=== PATIENT | female | born 1995 | race Caucasian/White ===

== ENCOUNTER 2024-03-07 10:06 | Outpatient (RCR) | payer OTHER, SELFPAY ==
[2024-03-07 11:37] LABS: Basophils Percent Auto 0.2 % (0.2-1.2); Eosinophils Percent Auto 0.4 % (0-4.4); Hematocrit 32.9 % (37.0-47.0); Hemoglobin 10.6 g/dL (12.0-15.0); Immature Granulocyte Absolute 0.08 K/mm3 (0.00-0.031); Immature Granulocyte Percent A 0.8 % (0-0.5); Lymphocytes Absolute Auto 1.37 K/mm3 (0.9-3.2); Lymphocytes Percent Auto 13.8 % (18.3-44.2); Mean Corpuscular HGB Conc 32.2 g/dl (32-36); Mean Corpuscular Hemoglobin 28.3 pg (26-34); Mean Platelet Volume 10.4 fl (7.4-10.4); Monocytes Absolute Auto 0.7 K/mm3 (0.1-0.6); Neutrophils Absolute Auto 7.7 K/mm3 (1.3-6.7); Neutrophils Percent Auto 77.8 % (45.5-73.1); Platelet Count Result 240 k/mm3 (150-375); Red Blood Count 3.74 M/mm3 (4.2-5.4); Red Cell Distribution Width 13.1 % (11.5-14.5); White Blood Count 9.9 K/mm3 (4.5-10.0)
[2024-03-07 11:49] LABS: Glucose 1 Hour PP 50gm Dose 138 mg/dL
[2024-03-07 12:31] LABS: HIV 1/2 Ab P24 Ag Result Negative (Negative)
[2024-03-08 08:05] LABS: Rapid Plasma Reagin Non-Reactive (NonReactive)
[2024-03-09] MEDS: RHO(D) IMMUNE GLOBULIN 300 MCG/2 ML SYRINGE IM (08:02)
== END 2024-06-05 23:59 | disposition home or self-care (01) ==
LOC: ANHLAB 10:06
PROVIDERS: Visit Provider Obstetrics & Gynecology
DX: O36.0190 Maternal care for anti-D [Rh] antibodies, unspecified trimester, not applicable or unspecified (principal)
CPT/HCPCS: 36415; 82947; 85025; 85461; 86592; 86703; 86850; 86900; 86901; 90384; 96372; G0432; J2790

== ENCOUNTER 2024-03-09 06:58 | Outpatient (CLI) | payer OTHER, SELFPAY ==
[2024-03-09 07:36] LABS: Glucose Fasting Gestational 95 mg/dL (>/=95)
[2024-03-09 09:47] LABS: Glucose 1 Hour Gest 147 mg/dL (>/=180)
[2024-03-09 10:40] LABS: Glucose 2 Hour Gest 119 mg/dL (>/= 155)
[2024-03-09 11:33] LABS: Glucose 3 Hour Gest 109 mg/dL (>/=140)
== END 2024-03-09 06:59 | disposition home or self-care (01) ==
LOC: ANHLAB 06:59
PROVIDERS: Visit Provider Obstetrics & Gynecology
DX: N94.89 Other specified conditions associated with female genital organs and menstrual cycle (principal)
CPT/HCPCS: 36415; 82951; 82952

== ENCOUNTER 2024-05-09 19:09 | Outpatient (CLI) | payer OTHER, SELFPAY ==
[2024-05-09] VITALS (22 sets, daily range): BP systolic 129–134; BP diastolic 77–82; PULSE 91–111; O2SAT 97–99; BMI 34.0
[2024-05-09 20:00] LABS: Basophils Percent Auto 0.1 % (0.2-1.2); Eosinophils Absolute Auto 0.1 K/mm3 (0-0.3); Eosinophils Percent Auto 0.5 % (0-4.4); Hematocrit 33.3 % (37.0-47.0); Immature Granulocyte Absolute 0.07 K/mm3 (0.00-0.031); Immature Granulocyte Percent A 0.6 % (0-0.5); Lymphocytes Absolute Auto 2.03 K/mm3 (0.9-3.2); Lymphocytes Percent Auto 18.6 % (18.3-44.2); Mean Corpuscular Hemoglobin 28.7 pg (26-34); Mean Corpuscular Volume 86.9 fl (80-100); Monocytes Absolute Auto 0.9 K/mm3 (0.1-0.6); Monocytes Percent Auto 8.5 % (2.6-8.5); Neutrophils Absolute Auto 7.8 K/mm3 (1.3-6.7); Neutrophils Percent Auto 71.7 % (45.5-73.1); Platelet Count Result 206 k/mm3 (150-375); Red Blood Count 3.83 M/mm3 (4.2-5.4); White Blood Count 10.9 K/mm3 (4.5-10.0)
[2024-05-09 20:05] LABS: Add Urine Microscopic? YES; Appearance Urine Clear (Clear); Bacteria Urine None Seen /hpf; Bilirubin Urine Negative (Negative); Blood Urine 1+ (Negative); Color Urine Yellow (Yellow); Glucose Urine UA Trace mg/dL (Negative); Ketones Urine Negative (Negative); Leukocyte Esterase Ur Negative LEU/UL (Negative); Nitrate Urine Negative (Negative); Non Pathogenic Casts 0-2; Protein Urine Negative (Negative); Specific Grav Ur 1.012 (1.001-1.035); Squamous Epithelial Cell Urine None Seen /hpf (Few); Urobilinogen Urine 0.2 mg/dL (<2.0); WBC Urine 0-5 /hpf (0-3); pH Urine 6.5 (5.0-9.0)
[2024-05-09 20:11] LABS: Alanine Aminotransferase 15 U/L (6-35); Albumin Level 3.7 g/dL (3.5-5.1); Alkaline Phosphatase 123 U/L (38-126); Anion Gap 8 mmol/L (4-12); Aspartate Amino Transferase 23 U/L (14-36); Bilirubin,Total 0.3 mg/dL (0.2-1.3); Blood Urea Nitrogen 4 mg/dL (7-17); Calcium 8.5 mg/dL (8.4-10.2); Carbon Dioxide 21 mmol/L (22-30); Chloride 106 mmol/L (98-107); Estimated CRCL calculation 165 ml/min; Estimated Glomerular Filt Rate > 60; Glucose 78 mg/dL (65-110); Potassium 3.9 mmol/L (3.4-5.0); Sodium 135 mmol/L (137-145); Uric Acid 3.4 mg/dL (2.5-7.5)
[2024-05-09 20:27] LABS: Total Protein Urine Random 8 mg/dL; Ur Ttl Prot Creatinine Ratio 0.12 mg/mg (0-0.20)
--- NOTE | 2024-05-09 20:59 | PC.NURSE ---
Called Dr. Keller, update on pt, blood pressure, and labs. Orders received to discharge pt with instructions to take blood pressures once a day, keep next scheduled appointment, and when to return to the unit.
--- NOTE | 2024-05-09 21:11 | PC.NURSE ---
Pt discharged with instructions to take blood pressure once a day, keep next scheduled appointment, and when to return to the unit, pt verbalizes understanding.
== END 2024-05-09 21:11 | disposition home or self-care (01) ==
LOC: ANHOBOP 19:12 → ANHOBPP 19:12
PROVIDERS: Visit Provider Obstetrics & Gynecology
DX: O13.9 Gestational [pregnancy-induced] hypertension without significant proteinuria, unspecified trimester (principal); Z3A.00 Weeks of gestation of pregnancy not specified
CPT/HCPCS: 36415; 59025; 80053; 81001; 82570; 84156; 84550; 85025; 99199

== ENCOUNTER 2024-05-25 14:31 | Outpatient (RCR) | payer OTHER, SELFPAY ==
[2024-05-17 15:32] VITALS: BP 132/76; PULSE 114
[2024-05-21 14:35] VITALS: BP 122/73; PULSE 110
--- NOTE | ~2024-05-25 | US_ITS ---
EXAMINATION: US OB BPP wo non-stress DATE: 05/17/2024 15:37 INDICATION: Hypertension. Third trimester. TECHNIQUE: Real-time pelvic ultrasound was performed. COMPARISON: Ultrasound 04/25/2024 FINDINGS: There is a single living fetus in vertex presentation. The placenta is posterior. heart rate i s 140 beats per minute (bpm). Biophysical profile performed by the technologist: breathing (30 sec sustained breathing in 30 minutes): 2 out of 2 movement (3 gross body movements in 30 minutes): 2 out of 2 tone (one episode of gftizqz-qfjhddqac-hjakdem limb movement): 2 out of 2 Amniotic fluid pocket (2 cm): 2 out of 2 Total score: 8 out of 8 IMPRESSION: 1. Single living fetus in vertex presentation. 2. Biophysical profile 8 out of 8. Reviewed, dictated and finalized at location A.
[2024-05-25 15:23] VITALS: BP 120/74; PULSE 98
== END 2024-06-04 09:42 | disposition home or self-care (01) ==
LOC: ANHOBOP 14:31
PROVIDERS: Visit Provider Obstetrics & Gynecology
DX: O16.3 Unspecified maternal hypertension, third trimester (principal); Z3A.38 38 weeks gestation of pregnancy
CPT/HCPCS: 59025; 76819

== ENCOUNTER 2024-05-27 16:58 | Inpatient (IN) | payer OTHER, SELFPAY ==
[2024-05-27] VITALS (26 sets, daily range): BP systolic 111–148; BP diastolic 44–87; PULSE 96–114; RESP 18; TEMP 36.2–36.6; BMI 33.3
[2024-05-27 17:29] LABS: Basophils Percent Auto 0.2 % (0.2-1.2); Eosinophils Percent Auto 0.2 % (0-4.4); Hematocrit 35.4 % (37.0-47.0); Hemoglobin 11.8 g/dL (12.0-15.0); Immature Granulocyte Absolute 0.08 K/mm3 (0.00-0.031); Immature Granulocyte Percent A 0.6 % (0-0.5); Lymphocytes Absolute Auto 1.97 K/mm3 (0.9-3.2); Lymphocytes Percent Auto 15.9 % (18.3-44.2); Mean Corpuscular HGB Conc 33.3 g/dl (32-36); Mean Platelet Volume 10.7 fl (7.4-10.4); Monocytes Absolute Auto 0.8 K/mm3 (0.1-0.6); Monocytes Percent Auto 6.4 % (2.6-8.5); Neutrophils Absolute Auto 9.5 K/mm3 (1.3-6.7); Neutrophils Percent Auto 76.7 % (45.5-73.1); Platelet Count Result 208 k/mm3 (150-375); Red Blood Count 4.07 M/mm3 (4.2-5.4); Red Cell Distribution Width 18.6 % (11.5-14.5); White Blood Count 12.4 K/mm3 (4.5-10.0)
--- NOTE | 2024-05-27 17:31 | LDADM ---
This patient, Yumi Velázquez, was admitted to Labor/Delivery/Recovery 108 on 05/27/24 at 16:58. Plans for labor, pain management and were discussed with patient. Patient/family oriented to hospital policies and general routines including ID bracelet, bed and alarms, visiting hours, pain management, procedures, bathroom and other care routines, personal items, smoking policy, room service/diet and guest tray routines, infant security routines, and visiting hours. Patient/Family are encouraged to report perceived risks to care and to ask questions if they do not understand what they are told or what they should do. See OBIX for further documentation.
[2024-05-27] MEDS: DINOPROSTONE 10 MG VAG INSERT VAGINAL (17:43)
--- NOTE | 2024-05-27 18:13 | WPDANESEPP ---
Anes - Eval Pre Procedure Procedure: Labor Epidural Date/Time: 05/27/24 18:13 Surgeon: Krishna Preop Diagnosis: Labor Pain Pre Op Diagnosis: Induction of Labor Patient Data Age: 28 Gender: F Height: 1.55 m Weight: 80 kg Last Vital Signs Temp 36.6 C 05/27/24 17:34 Pulse 105 H 05/27/24 18:01 Resp 18 05/27/24 17:34 BP 136/82 05/27/24 18:01 O2 Del Method Room Air 05/27/24 17:30 Allergies Allergy/AdvReac Type Severity Reaction Status Date / Time Sulfa (Sulfonamide Allergy Mild Rash Verified 05/23/24 17:10 Antibiotics) Home Medications Medication Instructions Recorded Confirmed Type vits no.126-ferrous fum 1 tablet PO DAILY 10/10/23 05/23/24 History 28 mg iron-folic acid 800 mcg tablet (Classic ) doxylamine succinate 25 mg tablet 25 mg PO QHS PRN Nausea 11/08/23 05/27/24 History (Unisom (doxylamine)) pyridoxine (vitamin B6) 25 mg 25 mg PO DAILY 11/08/23 05/23/24 History tablet aspirin 81 mg tablet,delayed 81 mg PO DAILY 01/06/24 05/23/24 History release (Adult Low Dose Aspirin) ferrous sulfate 325 mg (65 mg 325 mg PO DAILY 03/21/24 05/23/24 History iron) tablet valacyclovir 500 mg tablet 500 mg PO Q12H #90 tabs 04/26/24 05/23/24 Rx (Valtrex) famotidine 10 mg tablet (Pepcid AC) 10 mg PO DAILY 05/01/24 05/27/24 History omeprazole 20 mg capsule,delayed 20 mg PO DAILY 05/01/24 05/23/24 History release fluconazole 150 mg tablet 150 mg PO ONCE #1 tablet 05/07/24 05/27/24 Rx Laboratory Tests 05/27/24 17:10 WBC 12.4 H K/mm3 (4.5-10.0) RBC 4.07 L M/mm3 (4.2-5.4) Hgb 11.8 L g/dL (12.0-15.0) Hct 35.4 L % (37.0-47.0) MCV 87.0 fl (80-100) MCH 29.0 pg (26-34) MCHC 33.3 g/dl (32-36) RDW 18.6 H % (11.5-14.5) Plt Count 208 k/mm3 (150-375) MPV 10.7 H fl (7.4-10.4) Immature Gran % (Auto) 0.6 H % (0-0.5) Neut % (Auto) 76.7 H % (45.5-73.1) Lymph % (Auto) 15.9 L % (18.3-44.2) [place] % (Auto) 6.4 % (2.6-8.5) Eos % (Auto) 0.2 % (0-4.4) Baso % (Auto) 0.2 % (0.2-1.2) Lymph # (Auto) 1.97 K/mm3 (0.9-3.2) [place] # (Auto) 0.8 H K/mm3 (0.1-0.6) Eos # (Auto) 0.0 K/mm3 (0-0.3) Baso # (Auto) 0.0 K/mm3 (0.0-0.1) Abs Immat Gran (auto) 0.08 H K/mm3 (0.00-0.031) Absolute Neuts (auto) 9.5 H K/mm3 (1.3-6.7) Absolute Nucleated RBC 0.000 K/mm3 (0.0-0.012) Nucleated RBC % 0.0 % (0.0-0.2) RPR Pending HIV 1&2 Ab/P24 Ag 4thGn Pending : gestational age ( MICHELLE 05/26/24) Patient hx anesthesia problems: none Family hx anesthesia problems: none Results Review: All pre-operative results and documents have been reviewed as part of the pre-operative evaluation. [facility] Past Medical History Medical History Suppression of menses Family History Family History Grandparent Diabetes mellitus Acute myocardial infarction Heart disease Breast cancer Mother Psoriatic arthritis Sina's disease Social History Social History Smoking status: Never smoker Alcohol intake: current Alcohol use details: rare Substance use: never Do You Feel Safe in your Home?: Yes Lack of Transportation: No Lack of Food: Never True Current Housing: I Have Housing Concerned About Future Housing: No Difficulty Paying Gas/Electric Bills: No Difficulty Paying for Meds: No Currently Unemployed: No Education: Bachelor's Degree Difficulty w/ Childcare or Family Care: No Living arrangements: with family Occupation/Education: occupation Gender identity (if verbalized by the patient): Female Sexual Orientation (if Verbalized by the Patient): Straight or Heterosexual Spiritual care concerns: No Exam Day of Procedure 05/27/24 18:13 Patient weight: normal Heart: regular rate and rhythm Lungs: normal air movement Airway: Mallampati scale class II Neurological: alert and oriented
[2024-05-27 18:20] LABS: HIV 1/2 Ab P24 Ag Result Negative (Negative)
[2024-05-27 20:15] LABS: Rapid Plasma Reagin Non-Reactive (NonReactive)
[2024-05-28] VITALS (210 sets, daily range): BP systolic 51–153; BP diastolic 40–102; PULSE 42–131; RESP 16; TEMP 36.1–37.1; O2SAT 89–100
[2024-05-28] MEDS: LACTATED RINGERS 500 ML 999 ML IV CONT (02:27)
[2024-05-28] MEDS: OXYTOCIN 30 UNITS/NS 500 ML 30 UNITS/500 ML BAG 6 UNITS IV CONT (06:34)
[2024-05-28] MEDS: LACTATED RINGERS 1,000 ML 125 ML IV CONT ×3 (07:25→20:00)
--- NOTE | 2024-05-28 07:27 | PM.IMHP ---
H&P: HPI History of Present Illness Date/Time: 05/28/24 07:12 Chief Complaint: IOL Narrative: Yumi is a 28yo @ 40.2wks who presented last night for IOL. She is s/p Cervidil. She reports good movement. NO VB or LOF. She has had regular care. She has also been undergoing testing due to elevated BPs in clinic; but BP in L&D have all been normal. Blood and urine work were also normal. 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 She denies any MANUEL, vision changes, CP/SOB or RUQ pains. Her is complicated by: - Rh negative; s/p Rhogam at 28 wks - Varicella, CMV non-immune - Elevated 1 hour glucose; normal 3 hour - Covid @ 31wks - Genital HSV; ppx since 36wks - Elevated BP but no formal diagnosis of GHTN, labs/urine normal. Review of Systems Constitutional: Constitutional: Denies chills, Denies fever(s) and Denies headache(s) Eyes: Eyes: Denies change in vision ENT: Denies headache(s) Cardiovascular: Cardiovascular: Denies chest pain and Denies dyspnea Respiratory: Respiratory: Denies dyspnea Genitourinary: Genitourinary: Denies abnormal vaginal bleeding and Denies vaginal discharge Neurologic: Denies headache(s) Psychiatric: Psychiatric: Denies anxiety and Denies depression [facility] Past Medical History Medical History Suppression of menses Family History Family History Grandparent Diabetes mellitus Acute myocardial infarction Heart disease Breast cancer Mother Psoriatic arthritis Sina's disease Social History Social History Smoking status: Never smoker Alcohol intake: current Alcohol use details: rare Substance use: never Do You Feel Safe in your Home?: Yes Lack of Transportation: No Lack of Food: Never True Current Housing: I Have Housing Concerned About Future Housing: No Difficulty Paying Gas/Electric Bills: No Difficulty Paying for Meds: No Currently Unemployed: No Education: Bachelor's Degree Difficulty w/ Childcare or Family Care: No Living arrangements: with family Occupation/Education: occupation Gender identity (if verbalized by the patient): Female Sexual Orientation (if Verbalized by the Patient): Straight or Heterosexual Spiritual care concerns: No Meds Home Medications and Allergies Home Medications Medication Instructions Recorded Confirmed Type vits no.126-ferrous fum 1 tablet PO DAILY 10/10/23 05/23/24 History 28 mg iron-folic acid 800 mcg tablet (Classic ) doxylamine succinate 25 mg tablet 25 mg PO QHS PRN Nausea 11/08/23 05/27/24 History (Unisom (doxylamine)) pyridoxine (vitamin B6) 25 mg 25 mg PO DAILY 11/08/23 05/23/24 History tablet aspirin 81 mg tablet,delayed 81 mg PO DAILY 01/06/24 05/23/24 History release (Adult Low Dose Aspirin) ferrous sulfate 325 mg (65 mg 325 mg PO DAILY 03/21/24 05/23/24 History iron) tablet valacyclovir 500 mg tablet 500 mg PO Q12H #90 tabs 04/26/24 05/23/24 Rx (Valtrex) famotidine 10 mg tablet (Pepcid AC) 10 mg PO DAILY 05/01/24 05/27/24 History omeprazole 20 mg capsule,delayed 20 mg PO DAILY 05/01/24 05/23/24 History release fluconazole 150 mg tablet 150 mg PO ONCE #1 tablet 05/07/24 05/27/24 Rx Allergies Allergy/AdvReac Type Severity Reaction Status Date / Time Sulfa (Sulfonamide Allergy Mild Rash Verified 05/23/24 17:10 Antibiotics) Exam Const: General: cooperative, comfortable, no acute distress and obese Nutritional Appearance: obese Orientation/consciousness: patient oriented x3 Resp: Effort & Inspection: normal respiratory effort Cardio: Rate: regular rate GI: GI Palp: No abdominal tenderness : Other: FHT's: 130's/ mod misty/ + accels/ no decels - cat 1 TOCO: ctxs q_min Cervix: 3/80/-2 Membranes: AROM, clear 0725 Presentation: cephalic Skin: General skin exam: normal color Neuro: General: patient oriented x3 Extrem: General: normal to inspection Psych: Appearance: grossly normal Affect: normal affect Attitude: cooperative Assessment and Plan Assessment and plan (1) Encounter for induction of labor: Code(s): Z34.90 - Encounter for supervision of normal , unspecified, unspecified trimester Status: Acute Plan - risks/benefits of IOL discussed in detail - s/p cervidil overnight; cervix favorable - AROM, clear performed on exam - High dose pitocin per protocol - Continuous monitoring, currently reassuring - GBS neg - Anesthesia consult PRN pain - BPs normal; asymptomatic
--- NOTE | 2024-05-28 12:34 | PM.OBPNLAB ---
Pain Control Date/time seen: 05/28/24 11:14 Pain control: epidural Pelvic Exam Dilation (cm): 6 Effacement (%): 80 station: -1 Amniotic membrane status: Ruptured Contractions Monitor mode: External Contraction frequency: 3 (-4) Contraction pattern: Regular Status status: Category ll Comments: occasional variable, occasional late which resolve with position changes-- good variability with accelerations noted Assessment and Plan Pitocin rate (mU/min): 2 Assessment: active labor Plan: continuous present management
[2024-05-28] MEDS: ONDANSETRON INJ 4 MG/2 ML VIAL IV PUSH (14:18)
--- NOTE | 2024-05-28 15:15 | PM.OBPNLAB ---
Pain Control Date/time seen: 05/28/24 15:15 Pain control: epidural Pelvic Exam Dilation (cm): 9 Effacement (%): 90 station: 0 Amniotic membrane status: Ruptured Contractions Monitor mode: External Contraction frequency: 3 (-4) Status status: Category l Assessment and Plan Pitocin rate (mU/min): 4 Assessment: active labor Plan: continuous present management
--- NOTE | 2024-05-28 21:17 | PM.OBPRVD ---
OB - Vaginal Delivery Note Procedure Delivery date: 05/28/24 Events: Elective Induction of Labor Induction method: Per Cervidil Protocol Delivery augmentation: Rupture of Membranes and Pitocin Delivery monitor: External FHT and External Uterine Route of delivery: Episiotomy description: None Laceration Description: Perineal - 1st Degree and Vaginal (right into 1st; left into labial) Delivery repair: vicryl Quantitative Blood Loss (ml): 500 Anesthesia type: Epidural Disposition: Floor Complications: No immediate complications Baby Date of : 05/28/24 Time of : 20:52 Gestational Age by Date: 40 (.2) Infant gender: Female presentation: vertex position: Right Occiput Anterior Placenta delivery description: Expressed Cord Vessel Description: 3 Vessels and Delayed Cord Clamping score one minute: 9 score five minutes: 9 Narrative: Yumi for this to complete dilation with strong desire to push. She pushed for approximately 2 hours and 40 minutes with good maternal effort. She delivered the head over intact perineum. No nuchal cord was palpated. She easily delivered the infant's shoulders and body without complication. The infant was immediately placed skin to skin and had spontaneous cry. The infant's mouth and nose were bulb suction. Delayed cord clamping was performed. The umbilical cord was then doubly clamped and cut. A segment of the cord was collected for cord gases. The remaining cord blood was collected for typing. With Pitocin running and gentle downward traction on the cord, the placenta delivered without complication. Bimanual massage was performed and good uterine tone with minimal bleeding was noted. She was examined and a right vaginal laceration extended into the first-degree perineal laceration. She also had a left vaginal laceration that extended into the left labia. Both lacerations were repaired in the normal fashion using 2-0 Vicryl. Good hemostasis was noted. Her uterus remained firm with minimal bleeding. Sponge, lap, instrument, and needle counts were correct at the end of the procedure. Mom and baby were left bonding in the birthing suite in stable condition.
[2024-05-28] MEDS: OXYTOCIN 30 UNITS/NS 500 ML 30 UNITS/500 ML BAG 125 UNITS IV CONT (21:25)
[2024-05-28] MEDS: ACETAMINOPHEN 325 MG TABLET 650 MG PO (21:55)
[2024-05-28] MEDS: IBUPROFEN 600 MG TABLET PO (21:55)
--- NOTE | 2024-05-28 23:23 | OBPPTRN ---
Patient transferred to post room # via ( ). Support person present. Oriented to unit, room, information board, rooming in, admission packet and security measures. Patient verbalizes understanding.
--- NOTE | 2024-05-28 23:23 | OBPPTRN ---
Patient transferred to post room #291 via wheelchair. Baby in the crib alongside mother and Support person present. Oriented to unit, room, information board, rooming in, admission packet and security measures. Patient verbalizes understanding.
[2024-05-29 06:04] LABS: Hematocrit 30.5 % (37.0-47.0); Hemoglobin 10.3 g/dL (12.0-15.0); Mean Corpuscular HGB Conc 33.8 g/dl (32-36); Mean Corpuscular Hemoglobin 29.1 pg (26-34); Mean Corpuscular Volume 86.2 fl (80-100); Mean Platelet Volume 10.7 fl (7.4-10.4); Platelet Count Result 160 k/mm3 (150-375); Red Blood Count 3.54 M/mm3 (4.2-5.4); Red Cell Distribution Width 18.8 % (11.5-14.5)
--- NOTE | 2024-05-29 06:32 | P.PNOB_ITS ---
OB - PN: Subj Subjective Date/time seen: 05/29/24 06:32 Narrative: PPD#1 Yumi reports doing well today. 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 Her pain is controlled. She is tolerating regular diet, voiding, and has ambulated without issues. She has not passed gas yet. She is breast feeding. OB - PN: Obj Data Labs 05/29/24 05:58 Labs: Laboratory Results - last 24 hr 05/29/24 05:58 WBC 18.0 H RBC 3.54 L Hgb 10.3 L Hct 30.5 L MCV 86.2 MCH 29.1 MCHC 33.8 RDW 18.8 H Plt Count 160 MPV 10.7 H OB - PN A/P Assessment and Plan (1) Normal vaginal delivery of first : Code(s): O80 - Encounter for full-term uncomplicated delivery Status: Acute Plan day: 1 Plan: routine care Comments: - PO pain meds - Regular diet - Ambulation and hydration encouraged - Continue putting baby to breast q2-3hr Time Spent With Patient Time: Total time spent is greater than 50% in coordination of care (as documented) at patient's floor/unit and/or counseling patient: Review of Systems Constitutional: Constitutional: Denies chills, Denies fever(s) and Denies headache(s) Eyes: Eyes: Denies change in vision ENT: Denies dizziness and Denies headache(s) Cardiovascular: Cardiovascular: Denies chest pain, Denies palpitations and Denies dyspnea Respiratory: Respiratory: Denies cough and Denies dyspnea Gastrointestinal: Gastrointestinal: Denies nausea and Denies vomiting Neurologic: Denies dizziness and Denies headache(s) Endocrine: Endocrine: Denies palpitations Exam Const: General: cooperative, comfortable and no acute distress Orientation/consciousness: patient oriented x3 Resp: Effort & Inspection: normal respiratory effort Auscultation: clear to auscultation bilaterally Cardio: Rate: regular rate GI: Inspection: non-distended GI Palp: No abdominal tenderness and Yes Soft to palpation Auscultation: normal bowel sounds : Other: fundus firm Skin: General skin exam: normal color Neuro: General: patient oriented x3 Extrem: General: normal to inspection Psych: Appearance: grossly normal Affect: normal affect Attitude: cooperative
[2024-05-29 08:10] VITALS: BP 121/74; PULSE 105; RESP 18; TEMP 36.3; O2SAT 97
[2024-05-29] MEDS: MULTIVIT/MIN/PREN/FOL AC/IRON TABLET 1 TAB PO (08:20)
[2024-05-29] MEDS: DOCUSATE SODIUM 100 MG CAPSULE PO ×2 (08:20→16:44)
[2024-05-29] MEDS: DIBUCAINE 1% OINTMENT 30 GM TUBE 1 APPLIC TOPICAL (08:20)
[2024-05-29] MEDS: IBUPROFEN 600 MG TABLET PO ×2 (08:21→16:44)
[2024-05-29] MEDS: LANOLIN (LANSINOH) 7.5 GM CREAM 1 APPLIC TOPICAL (08:21)
--- NOTE | 2024-05-29 08:30 | PC.NURSE ---
Introductions were made, then consulted with patient to assess needs related to . Discussed with mother her?plans to feed?her and the?experience so far. Baby is sleepy so mom has her skin to skin. Early feeding cues handout given. Encouraged parents to call for assistance with latch. Resources provided for inpatient and outpatient services with the feeding sheet, mom/baby guide and name written on the communication board. Mother voiced understanding of information and will call if there is a request for assistance. Reported to the Primary RN.
--- NOTE | 2024-05-29 09:30 | PC.NURSE ---
Observed mother with latched to the [right] breast in [cradle] position. [was] able to maintain an appropriate latch with the nipple shield. We discussed use of the shield and the need to pump if we are using it consistently. Mother [declines] nipple pain/discomfort [throughout feeding]. Encouraged mother to keep awake and nursing at the breast for 15 minutes. Reviewed using the blue feeding sheet to record time and duration of feeding. Mother voiced understanding of the education shared, to call for assistance if the does not latch or if there is discomfort with . name/number on communication board. Reported to the Primary RN.?
[2024-05-29 12:11] VITALS: BP 106/67; PULSE 92; RESP 16; TEMP 36.6; O2SAT 97
[2024-05-29 16:15] VITALS: BP 133/71; PULSE 98; RESP 18; TEMP 36.6; O2SAT 99
[2024-05-29 16:20] VITALS: PULSE 98; RESP 18; O2SAT 99
[2024-05-29] MEDS: WITCH HAZEL 40 PADS 1 PAD TOPICAL (16:44)
[2024-05-29] MEDS: BENZOCAINE 20% AER SPR (*SP) 56 GM CAN 1 SPRAY TOPICAL (16:45)
[2024-05-29 20:00] VITALS: BP 126/75; PULSE 107; RESP 18; TEMP 37.1; O2SAT 99
[2024-05-30] MEDS: IBUPROFEN 600 MG TABLET PO (05:05)
[2024-05-30] MEDS: ACETAMINOPHEN 325 MG TABLET 650 MG PO (05:05)
[2024-05-30] MEDS: DOCUSATE SODIUM 100 MG CAPSULE PO (07:04)
[2024-05-30] MEDS: MULTIVIT/MIN/PREN/FOL AC/IRON TABLET 1 TAB PO (07:04)
--- NOTE | 2024-05-30 07:21 | P.DS_ITS ---
DS: Admitting Diagnosis Discharge Date 05/30/24 Admitting Diagnosis Induction of labor DS: Discharge Diagnosis Discharge Diagnosis (1) Normal vaginal delivery of first : Code(s): O80 - Encounter for full-term uncomplicated delivery Status: Acute OB - DS: Summary OB Procedures : NST, PIH Mgmt and Ultrasound OB Procedures Intrapartum: Spontaneous Vag Delivery OB Procedures: : None Peripartum Data Infant Delivery Method: Natural Vaginal Laceration Description: Perineal - 1st Degree and Vaginal (right into 1st; left into labial) Episiotomy description: None complications: none Ponder 1: Gender: Female Disposition of : home Status at Discharge Functional status at discharge: independent ambulation Overall status at discharge: patient is back to baseline Time Spent with Patient Time attestation: Total time spent providing and/or coordinating discharge services: Time spent: Less than 30 minutes Exam Const: General: cooperative, healthy appearing, comfortable and no acute distress Orientation/consciousness: patient oriented x3 Resp: Effort & Inspection: normal respiratory effort Auscultation: clear to auscultation bilaterally Cardio: Rate: regular rate GI: Inspection: non-distended GI Palp: No abdominal tenderness and Yes Soft to palpation Auscultation: normal bowel sounds : Other: fundus firm Skin: General skin exam: normal color Neuro: General: patient oriented x3 Extrem: General: normal to inspection Psych: Appearance: grossly normal Affect: normal affect Attitude: cooperative Discharge Plan Discharge Attending physician on discharge: Anabell Keller Discharging Clinician: Anabell Keller Anticipated Discharge Date/Time: 05/30/24 10:00 Patient Disposition: Home, Self-Care Activity: may shower and pelvic rest Diet: regular Patient Instructions: Vaginal Delivery (DC) Stand Alone Forms: General Discharge Information Follow-up/Referrals: Anabell Keller MD [Physician] - 4 Weeks Discharge Medications: New acetaminophen 325 mg Tablet 650 mg PO Q6H PRN (Reason: Mild Pain (1-3) Or Headache) Qty: 90 0RF docusate sodium 100 mg Capsule 100 mg PO BID PRN (Reason: Constipation) Qty: 90 0RF ibuprofen 600 mg Tablet 600 mg PO Q6H PRN (Reason: Cramping) Qty: 40 0RF Continued Classic 28 mg iron- 800 mcg tablet 1 tablet PO DAILY ferrous sulfate 325 mg (65 mg iron) tablet 325 mg PO DAILY omeprazole [Prilosec] 20 mg Capsule,Delayed Release(Dr/Ec) 20 mg PO DAILY Discontinued aspirin [Adult Low Dose Aspirin] 81 mg tablet,delayed release (DR/EC) 81 mg PO DAILY Unisom (doxylamine) 25 mg tablet 25 mg PO QHS PRN (Reason: Nausea) pyridoxine (vitamin B6) 25 mg tablet 25 mg PO DAILY valacyclovir [Valtrex] 500 mg tablet 500 mg PO Q12H Qty: 90 0RF famotidine [Pepcid AC] 10 mg Tablet 10 mg PO DAILY fluconazole 150 mg tablet 150 mg PO ONCE Qty: 1 0RF Rx Instructions: as a single dose Date of admission: 05/27/24 16:58 Primary Care Provider: PHYSICIAN,LEASING COORDINATOR Admitting Provider: Anabell Keller Attending physician on admission: Anabell Keller Condition: Stable
[2024-05-30 08:00] VITALS: BP 123/67; PULSE 98; RESP 17; TEMP 36.7; O2SAT 98
--- NOTE | 2024-05-30 09:00 | PC.NURSE ---
Consulted with mother concerning needs and she shared her ability to independently latch infant. She is very sore but she says the latch is feeling better. We reviewed nipple care with air drying, breast milk, lanolin, and hydrogel pads. Mother is feeding appropriately for growth of infant and understands stimulating to eat if needed. Infant has had appropriate feedings in the last 24 hours meets the outcomes for weight, output, blood sugar and jaundice at this time. Reinforced understanding of milk production, transition of milk, signs of adequate intake, transition of stool, prevention/relief of engorgement, plugged ducts, mastitis, responsive watching for feeding cues, the different methods of stimulating to breastfeed, community resources, and when to call a provider using the resource of the feeding sheet along with the mom and baby guide. Mother voiced understanding of the information shared, is confident to continue effectively her infant at home, when to call for assistance, denies any additional assistance or education at this time. Reported to the Primary RN.
[2024-06-01 11:33] VITALS: BP 138/86; PULSE 85; RESP 20; TEMP 36.9; O2SAT 100
== END 2024-05-30 11:40 | disposition home or self-care (01) | DRG 807 ==
LOC: ANHLDR 17:01 → ANHOB2 05-28 23:58
PROVIDERS: Admitting Provider Obstetrics & Gynecology; Visit Provider Obstetrics & Gynecology
DX: O98.52 Other viral diseases complicating childbirth (principal); Z37.0 Single live birth; Z86.16 Personal history of COVID-19; B00.9 Herpesviral infection, unspecified; O70.0 First degree perineal laceration during delivery; Z3A.40 40 weeks gestation of pregnancy; Z67.91 Unspecified blood type, Rh negative
CPT/HCPCS: 36415; 85025; 85027; 86592; 86703; 86850; 86900; 86901; A9270; G0432; J2405; J2590; J2795; J7120

== ENCOUNTER 2024-06-02 16:12 | Outpatient (CLI) | payer OTHER, SELFPAY ==
--- NOTE | 2024-06-02 16:15 | PC.NURSE ---
In- 1455 Out- 1555 Reason for visit: latch issues, use of nipple shield, cracked/bleeding nipples History: Yumi delivered baby Norah vaginally on 05/28. This is her first baby and she has been exclusively since delivery. Baby is a term, well . History: Baby Norah used the nipple shield off and on at the hospital to facilitate a latch on mom's right nipple. Mom states it was inverted and that's why they gave her a shield. After discharge, they needed to use the shield increasingly often to get a good latch on both breasts and mom's nipples became very painful and cracked, with the left one beginning to bleed this morning. Yumi and Danielito have stated that last night they really struggled to calm baby to latch and once she did latch they let her feed for 30 minutes on one breast and when she came off she often seemed unsatisfied. Mom has felt like the pain is worsening and she doesn't know how long she can continue to breastfeed if the pain doesn't improve. Observations: Yumi applied the nipple shield correctly and brought baby close to the breast to latch. She waited for a wide open mouth and was able to latch baby to the shield very well. Baby had her nose and chin close to the breast, with the chin engaged throughout the feeding. Mom said that the latch wasn't painful and she was comfortable. After a few minutes of baby suckling and having heavy swallows, we removed the shield and attempted to latch without. Mom and dad felt that when they get a good latch it's because a nurse did the motions for them, but they weren't able to recreate the latch on their own. We allowed mom to work with baby with minimal hands on assistance from the RN. Mom does well, she is a little slow to bring baby to the nipple when baby gives a wide gape. RN facilitated the latch by moving infants head in quickly when she opened wide. The latch looked very good and mom and dad were shown close up what to look for and how to ensure they maintain the deep latch throughout the entire feeding. As we talked, mom states that she got a smaller size shield because she felt the other shield was too big and would fall off. We measured her nipples at a 22mm and recommended she use a 24mm shield. She has been using the 20mm shield she bought and that is when her nipple began to bleed. Suggested she try the 24mm again and see how it feels, with special attention paid to not allowing the shield to slide in and out of baby's mouth while she suckles. Again discussed with mom that if the 20mm shield is most comfortable, she may use it, but to be cautious if it continues to cause rubbing and nipple trauma. We removed from the left breast and attempted to allow mom to independently latch her to the right breast, but was asleep and satisfied. She had eaten 2 ounces at the breast in only 10 minutes (per our weighted feed). Mom and dad asked a lot of great questions and we talked for quite awhile about use of the shield, initiating pumping, to expect improvement in nipple pain, and when to call for additional assistance. We also discussed what pumping and bottle feeding looks like and how to begin that routine if mom finds the nipple pain to be unbearable. weight: 3925 8#10 Discharge weight: 3697 8#2 Last weight: 3655 8#1 ([facility] follow up) Pre-feed weight: 3734 8#4 Post-feed weight: 3792 8#6 Plan of Care: Yumi wants to continue to put baby to breast at this time. Encouraged use of the shield as a tool to initiate feedings if baby is very upset and fussy or if they are struggling to latch. She may pump to soften breast tissue before feedings as needed. Recommended enticing baby with expressed milk if needed to help calm her before latching. Mom knows that her pain should only be improving from this point on and if things seem to get worse or stay the same she should call for further evaluation. Mom will try the 24mm shield to see if it works better and she has her Spectra pump if she decides to rest her nipples and pump/bottle feed at some feedings. Even if she does pump/bottle feed, she would like to continue putting baby to breast at some feedings. Suggested use of breast shells for nipple healing along with her own breast milk air drying on nipples after feeds and lanolin. Baby is a very effective nurser and parents are encouraged not to allow her to feed for a full 30 minutes on one breast, but to switch sides after 15-20 minutes so baby can increase the intake volume rather than pacifying on one breast for too long without much milk transfer. Follow up plans: Yumi and Danielito have great family support and are both dedicated to . Encouraged them to call Services for any further needs or questions. Mom and dad have received a lot of information and may feel overwhelmed, but they are strongly encouraged to call us if they are unsure or have follow up questions. Parents agree to this plan and will reach out for any further needs they have.
== END 2024-06-02 16:13 | disposition home or self-care (01) ==
LOC: ANHOBOP 16:14
PROVIDERS: Visit Provider Obstetrics & Gynecology
DX: Z39.1 Encounter for care and examination of lactating mother (principal)
CPT/HCPCS: 99202; G0463